=== PATIENT | female | born 1995 | race Caucasian/White ===

== ENCOUNTER 2017-02-24 23:54 | Observation (INO) | payer OTHER ==
[~2017-02-24] VITALS: Ht 177.8 cm; Wt 131.5 kg
[2017-02-25 00:44] LABS: HEMOGLOBIN 13.7 gm/dl (12.3-15.3); RED BLOOD COUNT 5.15 M/UL (4.00-5.10)
[2017-02-25 01:07] LABS: BUN/CREATININE RATIO 14 (0-10)
[2017-02-26 07:27] LABS: RED BLOOD COUNT 4.4 M/UL (4.00-5.10); WHITE BLOOD COUNT 6.7 K/UL (4.5-11.0)
[2017-02-26 07:28] LABS: HEMOGLOBIN 11.5 gm/dl (12.3-15.3)
[2017-02-26 07:42] LABS: BUN/CREATININE RATIO 11 (0-10)
[2017-02-27] MEDS ORDERED: HYDROCODON-ACE1 EAC2 PO (10:08)
[2017-02-27] MEDS ORDERED: COLACE 100MG C100 MG PO (10:08)
== END 2017-02-27 11:10 | disposition home or self-care (01) ==
LOC: ER1 23:54 → MED SURG 4 02-25 09:31 → ZEROF 02-25 09:31 → MED SURG 4 02-25 14:59
PROVIDERS: Student in an Organized Health Care Education/Training Program; ADMIT Surgery
PROC: 0FT44ZZ Resection of Gallbladder, Percutaneous Endoscopic Approach (ICD-10-PCS; principal; 2017-02-26 08:45)
DX: K80.00 Calculus of gallbladder with acute cholecystitis without obstruction (principal); E66.9 Obesity, unspecified; Z79.899 Other long term (current) drug therapy; Z87.891 Personal history of nicotine dependence
CPT/HCPCS: 36415; 76705; 80053; 81001; 83605; 83690; 84703; 85025; 87077; 87086; 87186; 96361; 96374; 96375; 96376; 99285; G0378; J0295; J1100; J1335; J2250; J2270; J2405; J2550; J2710; J3010; J7030; J7050; J7120; Q9962